=== PATIENT | male | born 1940 | race Asian ===

== ENCOUNTER → 2016-12-30 | Outpatient (CLI) | payer OTHER ==
[~2016-12-30] MED LIST: ACET-66 PO; ASPI-825 PO; ATEN100T PO; BENA40TA3 PO; COLC0.6T69 PO; DOXA8TAB81 PO; OLME20TA14 PO; PIOG15TA13 PO; PROB500T26 PO; ROSU20 PO
== END | disposition home or self-care (01) ==
LOC: RADPV 11:33
PROVIDERS: ATTEND Internal Medicine
DX: I70.0 Atherosclerosis of aorta (principal)
CPT/HCPCS: 71020